=== PATIENT | male | born 1985 | race Caucasian/White ===

== ENCOUNTER 2020-02-22 14:09 | Emergency (ER) | payer MEDICAID, SELFPAY ==
[~2020-02-22] VITALS: Ht 167.6 cm; Wt 72.6 kg
[2020-02-22 14:28] VITALS: BP 120/77
[2020-02-22 15:18] VITALS: BP 115/71
== END 2020-02-22 15:17 | disposition home or self-care (01) ==
LOC: MED 14:09
DX: R05 Cough (principal); Z20.828 Contact with and (suspected) exposure to other viral communicable diseases; R51.9 Headache, unspecified; R53.83 Other fatigue
CPT/HCPCS: 99283; U0003